=== PATIENT | female | born 1990 ===

== ENCOUNTER 2019-02-15 06:55 | Emergency (ER) | payer BC ==
[2019-02-15] MEDS ORDERED: Ondansetron INJ* 2 MG/ML VIAL IV ONE ×2 (07:22→08:53)
[2019-02-15] MEDS ORDERED: Famotidine IV* 10 MG/ML 2 ML (20 mg) IVPB ONE (07:22)
--- NOTE | 2019-02-15 07:34 | ED ---
GI/ HPI - HPI Summary HPI Summary: Pt is a 28 y/o F presenting to the ED with a chief complaint of GI issues since 02/13/19. She reports constant nausea accompanied by intermittent episodes of dizziness/lightheadedness, vomiting, and inability to keep any food or liquid down. This morning, she experienced hematemesis, and also reports slight R- sided abd pain. She denies anyone else at home being sick, blood in her stool, SOB, CP, arthralgia, LE edema, vaginal discharge, or dyspareunia. She also reports hx of a pituitary tumor which has been controlled by Cabergoline, and denies any visual changes or changes in chemistry. LNMP last week, A1. - History of Current Complaint Chief Complaint: EDNauseaVomitDiarrh Time Seen by Provider: 02/15/19 07:11 Stated Complaint: NAUSEA/VOMITING PER PT Hx Obtained From: Patient Hx Last Menstrual Period: last week Onset/Duration: Started Days Ago, Still Present Timing: Intermittent, Lasting Days Severity: Moderate Current Severity: Moderate Pain Intensity: 4 Location of Pain: RUQ, RLQ Associated Signs and Symptoms: Positive: Hematemesis, Dizziness, Nausea, Vomiting, Lightheadedness, Abdominal Pain. Negative: Discharge, Black Tarry Stool, Blood w/Stool, Dyspureunia, Chest Pain Aggravating Factor(s): Nothing Alleviating Factor(s): Nothing - Allergy/Home Medications Allergies/Adverse Reactions: Allergies Allergy/AdvReac Type Severity Reaction Status Date / Time cephalexin [From Keflex] Allergy Rash Verified 02/15/19 07:00 Home Medications: Home Medications Cabergoline 0.5 mg PO WEEKLY 02/15/19 [History Confirmed 02/15/19] Norgestimate-Ethinyl Estradiol [Zjx-Ce-Afyphhgu 0.18/0.215/0.25 mg-25 Mcg] 1 tab PO DAILY 02/15/19 [History Confirmed 02/15/19] PMH/Surg Hx/FS Hx/Imm Hx Previously Healthy: Yes Endocrine/Hematology History: Denies: Hx Diabetes Cardiovascular History: Denies: Hx Hypercholesterolemia Infectious Disease History: No Infectious Disease History: Denies: Traveled Outside the [place] in Last 30 Days - Family History Known Family History: Negative: Hypertension - Social History Alcohol Use: Occasionally Hx Substance Use: No Substance Use Type: Reports: None Hx Tobacco Use: No Smoking Status (MU): Never Smoked Tobacco Review of Systems Positive: Other - dec. oral intake Negative: Chest Pain Negative: Shortness Of Breath Positive: Abdominal Pain, Vomiting - with blood, Nausea. Negative: Other - blood in stool Negative: discharge, other - dyspareunia Negative: Edema Neurological: Other - dizzy, lightheaded All Other Systems Reviewed And Are Negative: Yes Physical Exam - Summary Physical Exam Summary: Constitutional: Well-developed, Well-nourished, Alert. (-) Distressed Skin: Warm, Dry HENT: Normocephalic; Atraumatic Eyes: Conjunctiva normal Neck: Musculoskeletal ROM normal neck. (-) JVD, (-) Stridor, (-) Tracheal deviation Cardio: Rhythm regular, rate normal, Heart sounds normal; Intact distal pulses; The pedal pulses are 2+ and symmetric. Radial pulses are 2+ and symmetric. Pulmonary/Chest wall: Effort normal. (-) Respiratory distress, (-) Wheezes, (-) Rales Abd: Soft, (-) tenderness, (-) Distension, (-) Guarding, (-) Rebound. Localizing pain to hypogastrium, but on deep palpation it is non-tender and there are no masses. Musculoskeletal: (-) Edema Neuro: Alert, Oriented x3 Psych: Mood and affect Normal Triage Information Reviewed: Yes Vital Signs On Initial Exam: Initial Vitals Temp Pulse Resp BP Pulse Ox 97.9 F 61 16 143/99 100 02/15/19 06:56 02/15/19 06:56 02/15/19 06:56 02/15/19 06:56 02/15/19 06:56 Vital Signs Reviewed: Yes Diagnostics - Vital Signs Vital Signs Temp Pulse Resp BP Pulse Ox 02/15/19 06:56 97.9 F 61 16 143/99 100 - Laboratory Result Diagrams: 02/15/19 07:30 02/15/19 07:30 Lab Statement: Any lab studies that have been ordered have been reviewed, and results considered in the medical decision making process. - CT Abd/pelv CT CT Interpretation Completed By: Radiologist Summary of CT Findings: Hepatomegaly with fatty infiltration of the liver. ED physician has reviewed this report. Re-Evaluation - Re-Evaluation 1st re-eval Re-Evaluation Time: 08:51 Change: Improved Comment: The pt is feeling better, but still not feeling 100%. Repeat abd exam is normal, non-tender. The pt is stable. I will give her another liter of fluids and Protonix, and evaluate her after that. 2nd re-eval Re-Evaluation Time: 10:14 Change: Unchanged Comment: Pt still having discomfort and nausea. GIGU Course/Dx - Course Course Of Treatment: Pt is a 28 y/o F presenting to the ED for nausea and vomiting since 02/13/19. She reports N/V, R-sided abd pain, episodes of dizziness /lightheadedness, decreased oral intake, and one episode of hematemesis this morning. She denies anyone else at home being sick, blood in her stool, SOB, CP , arthralgia, LE edema, vaginal discharge, or dyspareunia. She also reports hx of a pituitary tumor which has been controlled by Cabergoline. LNMP last week, A1. In the ED course, the pt was given Ondansetron and Famotidine for her N /V, as well as 1L LR for rehydration. At 0851, the pt is feeling better, but still not feeling 100%. Repeat abd exam is normal, non-tender. The pt is stable. I will give her another liter of fluids and Protonix, and evaluate her after that. She is still having discomfort and nausea as of 1014. CT abd/pelv shows hepatomegaly with fatty infiltration of the liver. The pt will be sent home with dx of nausea/vomiting and abd pain, with a prescription for Protonix. - Diagnoses Provider Diagnoses: Nausea & vomiting, Abdominal pain Discharge - Sign-Out/Discharge Documenting (check all that apply): Patient Departure Patient Received Moderate/Deep Sedation with Procedure: No - Discharge Plan Condition: Good Disposition: HOME Prescriptions: Pantoprazole Sodium [Protonix] 20 mg PO DAILY #15 tablet. Patient Education Materials: Gastroesophageal Reflux Disease in Children (ED) Referrals: [facility] [Outside] Additional Instructions: Please take your prescribed medications as instructed. Follow up with your primary care provider within the next 1-2 days. Return to the emergency department with any new or worsening symptoms. - Billing Disposition and Condition Condition: GOOD Disposition: Home - Attestation Statements Document Initiated by Scribe: Yes Documenting Scribe: Katelynn Myers Provider For Whom Richard is Documenting (Include Credential): Alex Ayon MD. Scribe Attestation: I, Katelynn Myers, scribed for Alex Ayon MD. on 02/15/19 at 1712. Scribe Documentation Reviewed: Yes Provider Attestation: The documentation as recorded by the jazmínibe, Katelynn Myers accurately reflects the service I personally performed and the decisions made by me, Alex Ayon MD. Status of Scribe Document: Viewed
[2019-02-15 07:36] LABS: ABS Lymphocytes 1.3 10^3/ul (1.0-4.8); ABS Monocytes 0.3 10^3/ul (0-0.8); ABS Neutrophils 4.9 10^3/ul (1.5-7.7); Eosinophil % 0.6 %; Hematocrit 39 % (35-47); Hemoglobin 13.1 g/dL (12.0-16.0); Lymphocyte % 19.9 %; Mean Corpuscular HGB Conc 34 g/dL (31-36); Mean Corpuscular Hemoglobin 31 pg (27-31); Mean Corpuscular Volume 92 fL (80-97); Mean Platelet Volume 8.8 fL (7.4-10.4); Nucleated Red Blood Cells % 0.1; Platelet Count 227 10^3/uL (150-450); Red Blood Count 4.21 10^6 /uL (3.70-4.87); Red Cell Distribution Width 14 % (10-15); White Blood Count 6.6 10^3/uL (3.5-10.8)
[2019-02-15 07:54] LABS: ALT 12 U/L (7-52); AST 11 U/L (13-39); Albumin 4.5 g/dL (3.2-5.2); Albumin/Globulin Ratio 1.7 (1-3); Alkaline Phosphatase 45 U/L (34-104); Anion Gap 7 mmol/L (2-11); BUN/Creatinine Ratio 13.7 (8-20); Blood Urea Nitrogen 10 mg/dL (6-24); CO2 Carbon Dioxide 27 mmol/L (22-32); Calcium 9.5 mg/dL (8.6-10.3); Chloride 106 mmol/L (101-111); EGFR African American 113.3 (>60); EGFR Non-African American 93.6 (>60); Globulin 2.7 g/dL (2-4); Glucose 103 mg/dL (70-100); Magnesium 2.1 mg/dL (1.9-2.7); Sodium 140 mmol/L (135-145); Total Protein 7.2 g/dL (6.4-8.9)
[2019-02-15 08:00] LABS: HCG Pregnancy < 0.60 mIU/mL
[2019-02-15] MEDS ORDERED: Lactated Ringers 1000 ML Bag* 1,000 ML IV SCH ×2 (08:00→09:00)
[2019-02-15] MEDS ORDERED: Pantoprazole IV* 40 MG IV ONE (08:53)
[2019-02-15 09:02] LABS: Urine Appearance Cloudy; Urine Bilirubin Negative (Negative); Urine Blood Negative (Negative); Urine Color Yellow; Urine Glucose Negative (Negative); Urine Ketones Trace (Negative); Urine Nitrite Negative (Negative); Urine Protein Negative (Negative); Urine Specific Gravity 1.006 (1.010-1.030); Urine Urobilinogen Negative (Negative)
[2019-02-15] MEDS ORDERED: Al Hydrox/Mg Hydrox/Simet LIQ* 30 ML UDC PO ONE (10:14)
[2019-02-15] MEDS ORDERED: Iohexol 300* (CONTRAST) 10 ML SDV IV ONE (11:49)
[2019-02-15 13:16] VITALS: BP 135/87
== END 2019-02-15 13:15 | disposition home or self-care (01) ==
LOC: ED 06:55
DX: R11.2 Nausea with vomiting, unspecified (principal); R10.11 Right upper quadrant pain; R10.31 Right lower quadrant pain; R42 Dizziness and giddiness; K76.0 Fatty (change of) liver, not elsewhere classified; D35.2 Benign neoplasm of pituitary gland; Z88.1 Allergy status to other antibiotic agents; Z79.3 Long term (current) use of hormonal contraceptives
CPT/HCPCS: 36415; 74177; 80053; 81003; 83605; 83690; 83735; 84702; 85025; 96361; 96374; 96375; 96376; 99283; A9270-GY; J2405